=== PATIENT | male | born 1990 | race Caucasian/White ===

== ENCOUNTER 2018-03-04 23:55 | Emergency (ER) | payer MEDICAID ==
[2018-03-05 00:05] VITALS: BP 150/83
--- NOTE | 2018-03-05 00:27 | ED Physician Documentation ---
PD HPI HEENT - Stated complaint Stated Complaint: TOOTHACHE - Chief complaint Chief Complaint: Heent - History obtained from History obtained from: Patient - History of Present Illness Timing - duration: Weeks Timing - details: Waxing and waning (worse today, with swelling of the jaw today as well.) Location: Tooth (left lower molars, have been bothering him and he has appt with dentist for next week.) Associated symptoms: Facial swelling. No: Fever Recently seen: Not recently seen Review of Systems Constitutional: denies: Fever Nose: denies: Rhinorrhea / runny nose, Congestion Throat: reports: Dental pain / toothache. denies: Sore throat Cardiac: denies: Chest pain / pressure Respiratory: denies: Dyspnea, Cough GI: denies: Nausea, Vomiting PD PAST MEDICAL HISTORY - Past Medical History Past Medical History: Yes Cardiovascular: None Respiratory: None Neuro: None - Past Surgical History Past Surgical History: No - Present Medications Home Medications: Ambulatory Orders Medication Instructions Recorded Confirmed Doxycycline Monohydrate 100 mg PO BID #14 tablet 03/05/18 HYDROcod/ACETAM 5/325 [[place] 5/325] 1 tab PO Q6H PRN #15 tablet 03/05/18 - Allergies Allergies/Adverse Reactions: Allergies Allergy/AdvReac Type Severity Reaction Status Date / Time No Known Drug Allergies Allergy Verified 03/05/18 00:05 - Social History Does the pt smoke?: Yes Smoking Status: Current every day smoker Does the pt drink ETOH?: No Does the pt have substance abuse?: No - Immunizations Immunizations are current?: Yes - POLST Patient has POLST: No PD ED PE NORMAL - Vitals Vital signs reviewed: Yes - General General: Alert and oriented X 3, No acute distress, Well developed/nourished - HEENT HEENT: Moist mucous membranes, Pharynx benign. No: Dentition benign (left lower teeth with erosion to gum line. Tissue swelling without fluctuance. There is facial swelling left mandible area. ) - Neck Neck: Supple, no meningeal sign, Other (left anterior node felt. ) - Cardiac Cardiac: RRR, No murmur - Respiratory Respiratory: Clear bilaterally - Abdomen Abdomen: Soft, Non tender - Back Back: No CVA TTP - Derm Derm: Normal color, Warm and dry - Neuro Neuro: Alert and oriented X 3, No motor deficit, Normal speech Results - Vitals Vitals: Oxygen O2 Source Room air PD MEDICAL DECISION MAKING - ED course Complexity details: reviewed old records, considered differential, d/w patient Departure - Departure Disposition: 01 Home, Self Care Clinical Impression: Pain, dental, Infected dental caries Condition: Stable Record reviewed to determine appropriate education?: Yes Instructions: ED Abscess Dental Prescriptions: Doxycycline Monohydrate 100 mg PO BID #14 tablet HYDROcod/ACETAM 5/325 [[place] 5/325] 1 tab PO Q6H PRN #15 tablet PRN Reason: Pain Comments: Drink lots of fluids. Continue ibuprofen a few times a day. You can use topical treatment such as oil of clove or Anbesol numbing medicine in the tooth area. Add Tylenol or hydrocodone if needed for pain. Doxycycline antibiotic twice daily for a week. Follow-up with dentist this coming week as planned. Discharge Date/Time: 03/05/18 01:00
[2018-03-05] MEDS ORDERED: HYDROcod/ACET 5/325 Prepack 4 PO STA (00:41)
[2018-03-05] MEDS ORDERED: DOXYCYCLINE 100 MG TABLET PO STA (00:41)
[2018-03-05] MEDS ORDERED: HYDROcod/ACETAM 5/325 MG TABLET PO STA (00:41)
== END 2018-03-05 01:00 | disposition home or self-care (01) ==
LOC: ED 23:55
DX: K08.89 Other specified disorders of teeth and supporting structures (principal); K02.9 Dental caries, unspecified; F17.200 Nicotine dependence, unspecified, uncomplicated
CPT/HCPCS: 99283; A9270

== ENCOUNTER 2018-03-28 09:05 | Outpatient (CLI) | payer MEDICAID | END 2018-03-28 09:06 | disposition critical access hospital (66) | LOC: EMS 09:05 | PROVIDERS: ATTEND Surgery | DX: R40.20 Unspecified coma (principal) | CPT/HCPCS: A0425; A0427 ==

== ENCOUNTER 2018-03-28 09:20 | Emergency (ER) | payer MEDICAID ==
[2018-03-28] MEDS ORDERED: SODIUM CHLORIDE 0.9% 1,000 ML IV ONE (09:25)
--- NOTE | 2018-03-28 09:28 | ED Physician Documentation ---
History of Present Illness - Stated complaint Stated Complaint: OD - Additonal information Additional information: hx from pt 27 m found down in [facility] bathroom with needle in his arm states "maybe" when I ask if he used heroin not breathing, had a pulse BVM by EMS given nasal narcan and then IO started by EMS starting to wake up now denies allergies further info not available Review of Systems Unable to obtain: AMS PD PAST MEDICAL HISTORY - Past Medical History Cardiovascular: None Respiratory: None - Past Surgical History Past Surgical History: No - Present Medications Home Medications: Ambulatory Orders Medication Instructions Recorded Confirmed Doxycycline Monohydrate 100 mg PO BID #14 tablet 03/05/18 HYDROcod/ACETAM 5/325 [[place] 5/325] 1 tab PO Q6H PRN #15 tablet 03/05/18 - Allergies Allergies/Adverse Reactions: Allergies Allergy/AdvReac Type Severity Reaction Status Date / Time No Known Drug Allergies Allergy Verified 03/28/18 09:50 - Social History Does the pt smoke?: Yes Smoking Status: Current every day smoker Does the pt drink ETOH?: No Does the pt have substance abuse?: No - Immunizations Immunizations are current?: Yes - POLST Patient has POLST: No PD ED PE NORMAL - Vitals Vital signs reviewed: Yes - General General: No: Alert and oriented X 3 (mumbling asnwer open eyes to voice) - HEENT HEENT: Atraumatic, PERRL (2) - Neck Neck: No bony TTP, Other (but altered) - Cardiac Cardiac: RRR - Respiratory Respiratory: No respiratory distress - Abdomen Abdomen: Soft, Non tender - Derm Derm: Other (track orozco) - Extremities Extremities: No deformity - Neuro Neuro: No: Alert and oriented X 3 Eye Opening: To Voice Motor: Localizes to Pain Verbal: Confused GCS Score: 12 Results - Vitals Vitals: Vital Signs - 24 hr 03/28/18 03/28/18 03/28/18 09:22 09:32 10:12 Temperature 36.3 C L Heart Rate 104 H 75 88 Respiratory 15 12 10 L Rate Blood Pressure 122/77 129/83 H O2 Saturation 96 96 03/28/18 03/28/18 12:18 15:05 Temperature Heart Rate 105 H 101 H Respiratory 15 18 Rate Blood Pressure 138/86 H 142/86 H O2 Saturation 100 99 Oxygen O2 Source Room air - Labs Labs: Laboratory Tests 03/28/18 03/28/18 09:58 09:58 WBC 8.6 RBC 4.24 L Hgb 12.6 L Hct 36.8 L MCV 86.8 MCH 29.7 MCHC 34.2 RDW 13.9 Plt Count 249 MPV 7.2 L Neut # 6.5 Lymph # 1.4 L [place] # 0.4 Eos # 0.2 Baso # 0.0 Absolute Nucleated RBC 0.00 Nucleated RBC % 0.0 Sodium 138 Potassium 4.1 Chloride 103 Carbon Dioxide 28 Anion Gap 7.0 BUN 10 Creatinine 0.8 Estimated GFR (MDRD) 117 Glucose 99 Calcium 8.7 Total Bilirubin 0.8 AST 28 ALT 16 Alkaline Phosphatase 69 Total Protein 6.8 Albumin 4.1 Globulin 2.7 Albumin/Globulin Ratio 1.5 Lipase 23 Salicylates < 6.0 Acetaminophen < 10 L Ethyl Alcohol < 5.0 PD MEDICAL DECISION MAKING - ED course ED course: explained to pt how close to dying he was today denies intentional / suicidal pt states he has naracan at home decline disucssion of inpt rehab right now but willing to receive info about local resources Departure - Departure Disposition: 01 Home, Self Care Clinical Impression: Heroin overdose Qualifiers: Encounter type: initial encounter Injury intent: accidental or unintentional Qualified Code(s): T40.1X1A - Poisoning by heroin, accidental (unintentional), initial encounter Condition: Good Instructions: ED Overdose Opiate, Abuse Heroin Abuse and Addiction Comments: You almost this morning - you were not breathing when EMS found you Please consider going to rehab. If you do continue to use, please have narcan available and make sure someone is there to help you if needed
--- NOTE | 2018-03-28 09:42 | XRAY Report ---
EXAM: CHEST RADIOGRAPHY EXAM DATE: 03/28/2018 09:17 AM. CLINICAL HISTORY: Altered mental status. COMPARISON: None. TECHNIQUE: 1 view. FINDINGS: Lungs/Pleura: No focal opacities evident. No pleural effusion. No pneumothorax. Mediastinum: Within exam limitations, the cardiomediastinal contour is normal. Other: None. IMPRESSION: Negative portable chest. [facility] Referring Provider Line: [phone] SITE ID: [id number]
[2018-03-28] MEDS ORDERED: NALOXONE 0.4 MG/ML VIAL IVP STA ×4 (09:48→12:33)
--- NOTE | 2018-03-28 09:52 | CT Report ---
EXAM: CT CERVICAL SPINE WITHOUT CONTRAST DATE: 03/28/2018 09:43 AM. HISTORY: Found down [facility]. Unresponsive, not breathing COMPARISONS: None. TECHNIQUE: Thin-section axial images were acquired of the cervical spine without contrast. Post-proce ssing: Coronal and sagittal reformats. Other: None. In accordance with CT protocol optimization, one or more of the following dose reduction techniques w ere utilized for this exam: automated exposure control, adjustment of mA and/or KV based on patient s ize, or use of iterative reconstructive technique. FINDINGS: Alignment: No scoliosis or spondylolisthesis. Bones: No fracture or bone lesion. Interspace Levels/Facets: C1-C2: Unremarkable. C2-C3: Unremarkable. C3-C4: Unremarkable. C4-C5: Unremarkable. C5-C6: Unremarkable. C6-C7: Unremarkable. C7-T1: Unremarkable. Musculature: No fatty atrophy. Other: The paravertebral and prevertebral soft tissues are unremarkable. Faint groundglass opacity ri ght greater than left lung apex IMPRESSION: Negative cervical spine CT. [facility] Referring Provider Line: [phone] SITE ID: [id number]
--- NOTE | 2018-03-28 09:54 | CT Report ---
EXAM: CT HEAD EXAM DATE: 03/28/2018 09:43 AM. CLINICAL HISTORY: Found down AMS. COMPARISON: None. TECHNIQUE: Multiaxial CT images were obtained from the foramen magnum to the vertex. Reformats: Coron al. IV contrast: None. In accordance with CT protocol optimization, one or more of the following dose reduction techniques w ere utilized for this exam: automated exposure control, adjustment of mA and/or KV based on patient s ize, or use of iterative reconstructive technique. FINDINGS: Parenchyma: No intraparenchymal hemorrhage. No evidence of mass, midline shift, or CT findings of inf arction. Ware-white differentiation is distinct. Extraaxial Spaces: Normal for age. No subdural or epidural collections identified. Ventricles: Normal in size and position. Sinuses and Orbits: Large retention cyst left maxillary antrum. Trace membrane thickening right maxil [place] antrum. Bones: No evidence of fracture or calvarial defect. Other: None. IMPRESSION: No acute intracranial findings. [facility] Referring Provider Line: [phone] SITE ID: [id number]
[2018-03-28 10:26] LABS: ALBUMIN 4.1 g/dL (3.2-5.5); ALBUMIN/GLOBULIN RATIO 1.5 (1.0-2.2); ALKALINE PHOSPHATASE 69 IU/L (42-121); ALT ALANINE AMINOTRANSFERASE 16 IU/L (10-60); AST ASPARTATE AMINOTRANSFERASE 28 IU/L (10-42); BILIRUBIN,TOTAL 0.8 mg/dL (0.2-1.0); BUN - BLOOD UREA NITROGEN 10 mg/dL (6-20); CALCIUM 8.7 mg/dL (8.5-10.3); CARBON DIOXIDE - CO2 28 mmol/L (21-32); CHLORIDE 103 mmol/L (101-111); CREATININE 0.8 mg/dL (0.6-1.2); GFR - MDRD 117 (>89); GLUCOSE 99 mg/dL (70-100); LIPASE 23 U/L (22-51); SALICYLATE < 6.0 mg/dL; SODIUM 138 mmol/L (135-145); TOTAL PROTEIN 6.8 g/dL (6.7-8.2)
[2018-03-28 10:29] LABS: BASOPHILS % (AUTO) 0.4 %; EOSINOPHILS # (AUTO) 0.2 10^3/uL (0.0-0.7); EOSINOPHILS % (AUTO) 2.5 %; HGB - HEMOGLOBIN 12.6 g/dL (14.0-18.0); LYMPHOCYTES # (AUTO) 1.4 10^3/uL (1.5-3.5); LYMPHOCYTES % (AUTO) 15.9 %; MEAN CORPUSCULAR HEMOGLOBIN 29.7 pg (27.0-31.0); MEAN CORPUSCULAR HGB CONC 34.2 g/dL (32.0-36.0); MEAN CORPUSCULAR VOLUME 86.8 fL (80.0-94.0); MEAN PLATELET VOLUME 7.2 fL (7.4-11.4); MONOCYTES # (AUTO) 0.4 10^3/uL (0.0-1.0); MONOCYTES % (AUTO) 5.1 %; NEUTROPHILS # (AUTO) 6.5 10^3/uL (1.5-6.6); NEUTROPHILS % (AUTO) 76.1 %; PLT - PLATELET COUNT 249 10^3/uL (130-450); RED BLOOD COUNT 4.24 10^6/uL (4.70-6.10); RED CELL DISTRIBUTION WIDTH 13.9 % (12.0-15.0); WHITE BLOOD COUNT 8.6 x10^3/uL (4.8-10.8)
[2018-03-28 10:30] LABS: ACETAMINOPHEN < 10 ug/mL (10-30)
[2018-03-28 16:24] VITALS: BP 146/90
== END 2018-03-28 16:45 | disposition home or self-care (01) ==
LOC: ED 09:20
DX: T40.1X1A Poisoning by heroin, accidental (unintentional), initial encounter (principal); Y92.002 Bathroom of unspecified non-institutional (private) residence as the place of occurrence of the external cause; F17.200 Nicotine dependence, unspecified, uncomplicated
CPT/HCPCS: 36415; 70450; 71045; 72125; 80053; 80307; 80320; 80329; 83690; 85025; 93005; 94770; 96361; 96374; 96376; 99284

== ENCOUNTER 2024-04-14 05:52 | Emergency (ER) | payer MEDICAID ==
--- NOTE | 2024-04-14 06:08 | ED Physician Documentation ---
History of Present Illness - Stated complaint Stated Complaint: ARM PX/MALAISE - Chief complaint Chief Complaint: General - History obtained from History obtained from: Patient - Additonal information Additional information: Patient complains of painful swelling and redness on his right wrist at and surrounding recent tattoo (had tattoo 2 days ago). Denies fevers. Pain is exacerbated with movement of the wrist, palpation. PD PAST MEDICAL HISTORY - Past Medical History Past Medical History: No Cardiovascular: None Respiratory: None - Past Surgical History Past Surgical History: No - Present Medications Home Medications: Ambulatory Orders Medication Instructions Recorded Confirmed Doxycycline Monohydrate 100 mg PO BID #14 tablet 03/05/18 HYDROcod/ACETAM 5/325 [[place] 5/325] 1 tab PO Q6H PRN #15 tablet 03/05/18 cephALEXin [Keflex] 500 mg PO Q6H #28 tab 08/04/23 Doxycycline [Vibramycin] 100 mg PO BID #14 tablet 04/14/24 Mupirocin 2% Oint [Bactroban 2% 1 applic TOP BID #22 gm 04/14/24 Oint] - Allergies Allergies/Adverse Reactions: Allergies Allergy/AdvReac Type Severity Reaction Status Date / Time No Known Drug Allergies Allergy Verified 04/14/24 06:07 - Social History Does the pt smoke?: Yes Smoking Status: Current every day smoker Does the pt drink ETOH?: No Does the pt have substance abuse?: No - Immunizations Immunizations are current?: Yes - POLST Patient has POLST: No PD ED PE NORMAL - Vitals Vital signs reviewed: Yes - General General: Alert and oriented X 3, No acute distress, Well developed/nourished PD ED PE EXPANDED - Extremities Extremities: Other (flexor surface right distal FA/proximal wrist: raised erythema at site of, and surrounding, tattoo. No fluctuance nor discharge. ROM intact right wrist) Results - Vitals Vitals: Vital Signs - 24 hr 04/14/24 04/14/24 06:02 06:36 Temperature 36.7 C Heart Rate 103 H 80 Respiratory 19 18 Rate Blood Pressure 108/88 H 109/90 H O2 Saturation 96 99 Oxygen O2 Source Room air PD Medical Decision Making - ED course Complexity details: considered differential, d/w patient ED course: Obvious cellulitis on physical exam that is at, and surrounding, site of recent tattoo. He is given 100 mg doxycycline p.o. and e-prescribed a 1-week course of doxycycline to his pharmacy of choice. I also submitted a prescription for topical mupirocin. Return precautions reviewed. Departure - Departure Disposition: 01 Home, Self Care Clinical Impression: Cellulitis Qualifiers: Site of cellulitis: extremity Site of cellulitis of extremity: upper extremity Laterality: right Qualified Code(s): L03.113 - Cellulitis of right upper limb Condition: Good Instructions: ED Infec Skin Cellulitis Prescriptions: Mupirocin 2% Oint [Bactroban 2% Oint] 1 applic TOP BID #22 gm Doxycycline [Vibramycin] 100 mg PO BID #14 tablet Comments: The skin around your tattoo appears infected (cellulitis). For this, you were given the first dose of an antibiotic (doxycycline) in the emergency department, and I have electronically submitted prescriptions for one-week courses of both the doxycycline as well as a topical antibiotic (mupirocin) to the [facility] pharmacy in [place]. Forms: PCP List Discharge Date/Time: 04/14/24 06:36
[2024-04-14] MEDS: DOXYCYCLINE 100 MG TABLET PO STA (06:34)
[2024-04-14 06:42] VITALS: BP 109/90; O2SAT 99
== END 2024-04-14 06:36 | disposition home or self-care (01) ==
LOC: ED 05:52
DX: L03.113 Cellulitis of right upper limb (principal); F17.200 Nicotine dependence, unspecified, uncomplicated
CPT/HCPCS: 99283; A9270

== ENCOUNTER 2024-05-31 03:47 | Emergency (ER) | payer MEDICAID ==
[2024-05-31 04:10] VITALS: BP 124/83; O2SAT 100
--- NOTE | 2024-05-31 04:14 | ED Physician Documentation ---
PD HPI SKIN - Stated complaint Stated Complaint: BILATERAL ARM PX/WOUND - Chief complaint Chief Complaint: Wound - History obtained from History obtained from: Patient - Additional information Additional information: 33yM with multiple abrasions to forearms presents to check on these. denies fever, swelling or pain at the sites. he did have pus coming from one of them but it has since resolved. PD PAST MEDICAL HISTORY - Past Medical History Past Medical History: No Cardiovascular: None Respiratory: None Other Past Medical History: Smokes marijuana but denies substance abuse. - Past Surgical History Past Surgical History: No - Present Medications Home Medications: Ambulatory Orders Medication Instructions Recorded Confirmed Bacitracin 1 appful TOP TID 10 Days #1 gm 05/31/24 - Allergies Allergies/Adverse Reactions: Allergies Allergy/AdvReac Type Severity Reaction Status Date / Time No Known Drug Allergies Allergy Verified 05/31/24 04:04 - Social History Does the pt smoke?: Yes Smoking Status: Current every day smoker Does the pt drink ETOH?: No Does the pt have substance abuse?: No - Immunizations Immunizations are current?: Yes - POLST Patient has POLST: No PD ED PE NORMAL - Vitals Vital signs reviewed: Yes - General General: Alert and oriented X 3, No acute distress, Well developed/nourished - HEENT HEENT: Atraumatic, PERRL, EOMI - Derm Derm: Normal color, Warm and dry, Other (excoriations, lesions to multiple sites of forearms and elbows. patient demonstrating picking behavior upon my exam. no cellulitis or induration c/w abscess) Results - Vitals Vitals: Vital Signs - 24 hr 05/31/24 03:55 Temperature 36.5 C Heart Rate 78 Respiratory 16 Rate Blood Pressure 124/83 H O2 Saturation 100 Oxygen O2 Source Room air PD Medical Decision Making - ED course ED course: 33yM p/w lesions of multiple sites on forearms and elbows without pankaj signs of infection. Antibiotic ointment applied and sent to pharmacy. return precautions given. plan to f/u with pcp. Departure - Departure Disposition: 01 Home, Self Care Clinical Impression: Abrasions of multiple sites Condition: Stable Instructions: ED Abrasion Prescriptions: Bacitracin 1 appful TOP TID 10 Days #1 gm Comments: You were seen in the emergency department for multiple lesions on your arms. You can apply antibiotic ointment (sent electronically to [facility]) to the affected areas three times daily. Please follow-up with your primary care provider and return to the emergency department if you have any new or worsening symptoms or other concerns.
[2024-05-31] MEDS: BACITRACIN ZINC OINT 1 PACKET TOP STA (04:25)
== END 2024-05-31 04:26 | disposition home or self-care (01) ==
LOC: ED 03:47
DX: S50.812A Abrasion of left forearm, initial encounter (principal); S50.811A Abrasion of right forearm, initial encounter; S50.312A Abrasion of left elbow, initial encounter; S50.311A Abrasion of right elbow, initial encounter; X58.XXXA Exposure to other specified factors, initial encounter; R46.89 Other symptoms and signs involving appearance and behavior; F17.200 Nicotine dependence, unspecified, uncomplicated
CPT/HCPCS: 99282; 99283; A9270